=== PATIENT | male | born 1965 | race Caucasian/White ===

== ENCOUNTER 2021-06-18 13:21 | Inpatient (IN) ==
[2021-06-18] MEDS ORDERED: DILTIAZEM 100 MG VIAL.ADD IV ONE (13:48)
[2021-06-18] MEDS ORDERED: DILTIAZEM 50 MG/10 ML VIAL IV ONE ×2 (13:49→17:07)
[2021-06-18] MEDS ORDERED: ADENOSINE 6 MG/2 ML VIAL ONE (14:54)
[2021-06-18] MEDS ORDERED: AMIODARONE 150 MG/3 ML VIAL ONE (15:10)
[2021-06-18] MEDS ORDERED: AMIODARONE 450 MG/9 ML VIAL IV ONE (15:10)
[2021-06-18] MEDS ORDERED: AMIODARONE INJ 150 MG in DEXTROSE 5% 100 ML IV ONE (15:11)
[2021-06-18] MEDS ORDERED: ALBUTEROL 2.5 MG/3 ML NEB RESP TX PRN (15:12)
[2021-06-18] MEDS ORDERED: ONDANSETRON 4 MG/2 ML VIAL IV PRN (15:12)
[2021-06-18] MEDS ORDERED: ACETAMINOPHEN 325 MG TABLET PO PRN (15:12)
[2021-06-18] MEDS ORDERED: AZITHROMYCIN INJ 500 MG in SODIUM CHLORIDE 0.9% 250 ML IV ONE (15:12)
[2021-06-18] MEDS ORDERED: SODIUM CHLORIDE 0.9% 1,000 ML IV STA (15:20)
[2021-06-18] MEDS ORDERED: AMIODARONE INJ 450 MG in DEXTROSE 5% 241 ML IV SCH (15:30)
[2021-06-18] MEDS ORDERED: ENOXAPARIN 40 MG/0.4 ML SYRINGE SUBCUT SCH (15:30)
[2021-06-18] MEDS ORDERED: cefTRIAXone 1,000 MG in SODIUM CHLORIDE 0.9% 100 ML IV SCH (15:30)
[2021-06-18] MEDS ORDERED: MIDAZOLAM 10 MG/2 ML VIAL ONE (15:31)
[2021-06-18 15:43] LABS: ABG HCO3 20.2 MMOL/L (20-26); ABG PCO2 47.2 MM HG (35-48); ABG PH 7.296 (7.35-7.45); ABG TCO2 20.1 MMOL/L (23-27)
[2021-06-18 15:46] LABS: ABG PO2 36.4 MM HG (80-95)
[2021-06-18] MEDS ORDERED: DIGOXIN 0.5 MG/2 ML AMP IV ONE ×2 (16:15→17:00)
[2021-06-18] MEDS ORDERED: MIDAZOLAM 2 MG/2 ML VIAL IV ONE (16:30)
[2021-06-18] MEDS: MIDAZOLAM 100 MG in SODIUM CHLORIDE 0.9% 80 ML IV PRN (17:25)
[2021-06-18] MEDS: fentaNYL INJ 1,250 MCG in SODIUM CHLORIDE 0.9% 225 ML IV PRN ×2 (17:28→23:29)
[2021-06-18] MEDS ORDERED: DILTIAZEM INJ 100 MG in SODIUM CHLORIDE 0.9% 100 ML IV SCH (17:30)
[2021-06-18] MEDS: ROCURONIUM 500 MG in SODIUM CHLORIDE 0.9% 500 ML IV PRN (17:32)
[2021-06-18] MEDS: DEXAMETHASONE 4 MG/1 ML VIAL IV SCH (18:21)
[2021-06-18] MEDS: FAMOTIDINE 20 MG/2 ML VIAL IV SCH (18:21)
[2021-06-18 18:51] LABS: ABG Base Excess -6.4 MMOL/L (-2.5-2.5); ABG HCO3 18.9 MMOL/L (20-26); ABG Oxygen Saturation 79.8 % (95-100); ABG PO2 60.4 MM HG (80-95); ABG TCO2 22.5 MMOL/L (23-27)
[2021-06-18 18:52] LABS: Basophils % 0.2 % (0.0-0.8); Hematocrit 49.2 VOL% (42.0-52.0); Hemoglobin 15.5 GM/DL (14.0-18.0); Immature Granulocytes % 1.9 %; Immature Granulocytes Absolute 0.41 #; Lymphocytes # 1.3 10*3/uL (1.4-4.0); Lymphocytes % 6.1 % (21.2-54.2); Mean Corpuscular HGB Conc 31.5 GM/DL (32-36); Mean Platelet Volume 9.6 FL (9.6-12.0); Monocytes % 6.5 % (1.7-12.7); NRBC # 0.18 10*3/uL; Neutrophils % 85.3 % (38.7-73.9); Platelet Count 173 T/CUMM (130-400); Red Cell Distribution Width 12.9 % (9.3-17.3); White Blood Count 21.3 T/CUMM (4-12)
[2021-06-18 18:53] LABS: ABG PCO2 71.4 MM HG (35-48); ABG PH 7.158 (7.35-7.45)
[2021-06-18 19:09] LABS: Albumin 2.6 G/DL (3.4-5.0); Bilirubin,Total 1.4 MG/DL (0.20-1.00); Calcium 7.6 MG/DL (8.5-10.1); Osmolality,Calculated 292.1 MOS/KG (273-304); Potassium 5.3 MMOL/L (3.5-5.1); Total Protein 6.3 G/DL (6.4-8.2)
[2021-06-18 19:12] LABS: Lymphocytes 6 % (20-55); Segmented Neutrophils 92 % (50-85); Total Cells Counted 100
[2021-06-18 19:13] LABS: Anisocytosis 1+; Macrocytosis 1+; Platelet Estimate Adequate; Polychromasia 1+
[2021-06-18] MEDS ORDERED: SODIUM CHLORIDE 0.9% 1,000 ML IV ONE (19:20)
[2021-06-18] MEDS: NOREPINEPHRINE 8 MG in SODIUM CHLORIDE 0.9% 242 ML IV PRN (19:45)
[2021-06-18 20:34] LABS: ABG Base Excess -7.3 MMOL/L (-2.5-2.5); ABG HCO3 18.3 MMOL/L (20-26); ABG Oxygen Saturation 82.5 % (95-100); ABG PCO2 58.1 MM HG (35-48); ABG PO2 60.8 MM HG (80-95); ABG TCO2 19.8 MMOL/L (23-27)
[2021-06-18 20:37] LABS: ABG PH 7.195 (7.35-7.45)
[2021-06-18] MEDS: ENOXAPARIN 120 MG/0.8 ML SYRINGE SUBCUT SCH (22:25)
[2021-06-18] MEDS: ASCORBIC ACID 500 MG TABLET PO SCH (22:50)
[2021-06-18 23:24] LABS: ABG Base Excess -8.3 MMOL/L (-2.5-2.5); ABG HCO3 17.6 MMOL/L (20-26); ABG Oxygen Saturation 83.9 % (95-100); ABG PCO2 55.8 MM HG (35-48); ABG PO2 61.6 MM HG (80-95); ABG TCO2 18.7 MMOL/L (23-27)
[2021-06-18 23:25] LABS: ABG PH 7.191 (7.35-7.45)
[2021-06-19] MEDS: SODIUM CHLORIDE 0.9% 1,000 ML IV SCH (00:09)
[2021-06-19] MEDS: NOREPINEPHRINE 8 MG in SODIUM CHLORIDE 0.9% 242 ML IV PRN ×3 (02:10→18:57)
[2021-06-19 02:25] LABS: ABG Base Excess -8.8 MMOL/L (-2.5-2.5); ABG HCO3 17.3 MMOL/L (20-26); ABG Oxygen Saturation 85.3 % (95-100); ABG PCO2 53.7 MM HG (35-48); ABG PO2 62.1 MM HG (80-95); ABG TCO2 18.1 MMOL/L (23-27)
[2021-06-19 02:27] LABS: ABG PH 7.192 (7.35-7.45)
[2021-06-19] MEDS ORDERED: ACETAMINOPHEN 650 MG SUPP RECTAL PRN (03:01)
[2021-06-19 03:48] LABS: ABG Base Excess -8.6 MMOL/L (-2.5-2.5); ABG HCO3 17.4 MMOL/L (20-26); ABG Oxygen Saturation 86.8 % (95-100); ABG PCO2 53.8 MM HG (35-48); ABG PO2 64.5 MM HG (80-95); ABG TCO2 18.3 MMOL/L (23-27)
[2021-06-19 03:52] LABS: ABG PH 7.194 (7.35-7.45)
[2021-06-19 03:59] LABS: Basophils % 0.2 % (0.0-0.8); Hematocrit 49.4 VOL% (42.0-52.0); Hemoglobin 15.6 GM/DL (14.0-18.0); Immature Granulocytes % 1.7 %; Immature Granulocytes Absolute 0.37 #; Lymphocytes # 1.1 10*3/uL (1.4-4.0); Lymphocytes % 5.1 % (21.2-54.2); Mean Corpuscular HGB Conc 31.6 GM/DL (32-36); Mean Corpuscular Volume 109.1 FL (87-102); Monocytes % 6.2 % (1.7-12.7); NRBC # 0.15 10*3/uL; Neutrophils % 86.8 % (38.7-73.9); Platelet Count 149 T/CUMM (130-400); Red Blood Count 4.53 MC/CUMM (3.8-5.5); Red Cell Distribution Width 13.1 % (9.3-17.3); White Blood Count 21.3 T/CUMM (4-12)
[2021-06-19] MEDS ORDERED: SODIUM CHLORIDE 0.9% 1,000 ML IV ONE (04:32)
[2021-06-19 04:41] LABS: Albumin 2.5 G/DL (3.4-5.0); Bilirubin,Total 2.1 MG/DL (0.20-1.00); Calcium 7.9 MG/DL (8.5-10.1); Ferritin 1562.3 ng/ml (26-388); Osmolality,Calculated 284.8 MOS/KG (273-304); Total Protein 6.6 G/DL (6.4-8.2)
[2021-06-19 04:45] LABS: Potassium 6.1 MMOL/L (3.5-5.1)
[2021-06-19] MEDS ORDERED: SODIUM POLYSTYRENE SULFATE 15 GM/60 ML BOTTLE PO ONE (04:47)
[2021-06-19] MEDS: FAMOTIDINE 20 MG/2 ML VIAL IV SCH ×2 (05:24→15:35)
[2021-06-19] MEDS: ROCURONIUM 500 MG in SODIUM CHLORIDE 0.9% 500 ML IV PRN ×3 (05:27→22:40)
[2021-06-19] MEDS ORDERED: SODIUM BICARBONATE 50 MEQ/50 ML VIAL IV ONE ×2 (05:38→05:40)
[2021-06-19] MEDS: fentaNYL INJ 1,250 MCG in SODIUM CHLORIDE 0.9% 225 ML IV PRN ×3 (06:00→22:14)
[2021-06-19] MEDS: DEXAMETHASONE 4 MG/1 ML VIAL IV SCH (08:23)
[2021-06-19] MEDS: ENOXAPARIN 120 MG/0.8 ML SYRINGE SUBCUT SCH ×2 (08:24→21:40)
[2021-06-19] MEDS: ZINC GLUCONATE 50 MG TABLET PO SCH (08:24)
[2021-06-19] MEDS: CHOLECALCIFEROL 1,000 UNIT TABLET PO SCH (08:24)
[2021-06-19] MEDS: ASCORBIC ACID 500 MG TABLET PO SCH ×2 (08:24→21:50)
[2021-06-19] MEDS ORDERED: AZITHROMYCIN 250 MG TABLET PO SCH (09:00)
[2021-06-19] MEDS: methylPREDNISolone SOD SUC 40 MG/1 ML VIAL IV SCH ×2 (10:30→17:45)
[2021-06-19 10:52] LABS: Calcium 7.8 MG/DL (8.5-10.1); Potassium 5.7 MMOL/L (3.5-5.1)
[2021-06-19 10:55] LABS: ABG PCO2 47.7 MM HG (35-48); ABG PH 7.233 (7.35-7.45); ABG PO2 74.6 MM HG (80-95); ABG TCO2 17.6 MMOL/L (23-27)
[2021-06-19] MEDS ORDERED: ASPIRIN EC 81 MG TABLET PO SCH (11:00)
[2021-06-19] MEDS: CEFEPIME 1,000 MG in SODIUM CHLORIDE 0.9% 100 ML IV SCH ×2 (11:55→19:09)
[2021-06-19] MEDS: SODIUM POLYSTYRENE SULFATE 15 GM/60 ML BOTTLE PO SCH ×2 (11:55→21:45)
[2021-06-19] MEDS: SODIUM BICARB INJ 50 MEQ in STERILE WATER INJ 1,000 ML IV SCH (12:25)
[2021-06-19] MEDS: VANCOMYCIN INJ 1,500 MG in SODIUM CHLORIDE 0.9% 500 ML IV SCH (14:26)
[2021-06-20] MEDS: SODIUM CHLORIDE 0.9% 1,000 ML IV SCH ×2 (01:30→06:30)
[2021-06-20] MEDS: INSULIN REGULAR 100 UNIT/ML SUBCUT SCH ×5 (02:04→23:58)
[2021-06-20] MEDS ORDERED: DILTIAZEM 50 MG/10 ML VIAL IV ONE ×2 (02:58→11:45)
[2021-06-20] MEDS: methylPREDNISolone SOD SUC 40 MG/1 ML VIAL IV SCH ×3 (03:24→18:48)
[2021-06-20] MEDS: CEFEPIME 1,000 MG in SODIUM CHLORIDE 0.9% 100 ML IV SCH ×3 (03:25→18:48)
[2021-06-20] MEDS: FAMOTIDINE 20 MG/2 ML VIAL IV SCH ×2 (03:27→09:29)
[2021-06-20] MEDS ORDERED: DILTIAZEM INJ 100 MG in SODIUM CHLORIDE 0.9% 100 ML IV SCH (03:30)
[2021-06-20] MEDS: fentaNYL INJ 1,250 MCG in SODIUM CHLORIDE 0.9% 225 ML IV PRN (03:46)
[2021-06-20 04:03] LABS: ABG Base Excess -4.4 MMOL/L (-2.5-2.5); ABG HCO3 20.5 MMOL/L (20-26); ABG Oxygen Saturation 86.3 % (95-100); ABG PH 7.263 (7.35-7.45); ABG TCO2 20.6 MMOL/L (23-27)
[2021-06-20] MEDS ORDERED: AMIODARONE INJ 150 MG in DEXTROSE 5% 100 ML IV ONE (04:20)
[2021-06-20] MEDS ORDERED: DIGOXIN 0.5 MG/2 ML AMP ONE (04:20)
[2021-06-20] MEDS ORDERED: DIGOXIN 0.5 MG/2 ML AMP IV ONE ×2 (04:20→10:30)
[2021-06-20] MEDS ORDERED: AMIODARONE 150 MG/3 ML VIAL ONE (04:21)
[2021-06-20] MEDS: SODIUM POLYSTYRENE SULFATE 15 GM/60 ML BOTTLE PO SCH (04:48)
[2021-06-20 05:11] LABS: Basophils % 0.1 % (0.0-0.8); Hematocrit 44.8 VOL% (42.0-52.0); Hemoglobin 14.3 GM/DL (14.0-18.0); Immature Granulocytes % 1.1 %; Immature Granulocytes Absolute 0.17 #; Lymphocytes # 0.5 10*3/uL (1.4-4.0); Lymphocytes % 3.3 % (21.2-54.2); Mean Corpuscular HGB Conc 31.9 GM/DL (32-36); Mean Corpuscular Volume 105.9 FL (87-102); Mean Platelet Volume 11.4 FL (9.6-12.0); Monocytes % 6.4 % (1.7-12.7); NRBC # 0.03 10*3/uL; Neutrophils % 89.1 % (38.7-73.9); Red Blood Count 4.23 MC/CUMM (3.8-5.5); Red Cell Distribution Width 13.1 % (9.3-17.3); White Blood Count 15.3 T/CUMM (4-12)
[2021-06-20 05:12] LABS: Platelet Count 88 T/CUMM (130-400)
[2021-06-20 05:29] LABS: Band Neutrophils 1 % (0-10); Nucleated Red Blood Cells 1 (0-5); Platelet Estimate Decreased; Segmented Neutrophils 94 % (50-85); Total Cells Counted 100
[2021-06-20 05:30] LABS: Macrocytosis Slight
[2021-06-20 05:42] LABS: Bilirubin,Total 3.5 MG/DL (0.20-1.00); Osmolality,Calculated 307.6 MOS/KG (273-304); Potassium 4.8 MMOL/L (3.5-5.1); Total Protein 5.9 G/DL (6.4-8.2)
[2021-06-20 06:08] LABS: Calcium 7.8 MG/DL (8.5-10.1); Osmolality,Calculated 309.4 MOS/KG (273-304); Potassium 5.1 MMOL/L (3.5-5.1)
[2021-06-20 06:40] LABS: Ferritin 1700.5 ng/ml (26-388)
[2021-06-20] MEDS ORDERED: METOPROLOL TARTRATE 5 MG/5 ML VIAL IV ONE (06:51)
[2021-06-20] MEDS ORDERED: AMIODARONE INJ 450 MG in DEXTROSE 5% 241 ML IV SCH ×2 (07:00→13:00)
[2021-06-20] MEDS: ENOXAPARIN 120 MG/0.8 ML SYRINGE SUBCUT SCH ×2 (07:24→20:57)
[2021-06-20] MEDS: fentaNYL INJ 2,500 MCG in SODIUM CHLORIDE 0.9% 75 ML IV PRN ×5 (08:05→21:47)
[2021-06-20] MEDS: ROCURONIUM 1,000 MG in SODIUM CHLORIDE 0.9% 175 ML IV PRN ×2 (08:39→22:01)
[2021-06-20] MEDS: SODIUM BICARB INJ 50 MEQ in STERILE WATER INJ 1,000 ML IV SCH (08:46)
[2021-06-20] MEDS: MIDAZOLAM 100 MG in SODIUM CHLORIDE 0.9% 80 ML IV PRN ×2 (09:43→18:15)
[2021-06-20] MEDS: ASCORBIC ACID 500 MG TABLET PO SCH ×3 (09:59→21:22)
[2021-06-20] MEDS: ZINC GLUCONATE 50 MG TABLET PO SCH ×2 (09:59→10:00)
[2021-06-20] MEDS: ASPIRIN CHEW 81 MG TABLET PO SCH ×2 (09:59→10:00)
[2021-06-20] MEDS: CHOLECALCIFEROL 1,000 UNIT TABLET PO SCH ×2 (09:59→10:00)
[2021-06-20 11:26] LABS: CKMB % 2.7 %
[2021-06-20] MEDS: DILTIAZEM INJ 100 MG in SODIUM CHLORIDE 0.9% 100 ML IV SCH (12:01)
[2021-06-20 14:23] LABS: ABG Base Excess -6.4 MMOL/L (-2.5-2.5); ABG Oxygen Saturation 87.2 % (95-100); ABG PCO2 42.3 MM HG (35-48); ABG PH 7.287 (7.35-7.45); ABG PO2 56.2 MM HG (80-95); ABG TCO2 17.7 MMOL/L (23-27)
[2021-06-20] MEDS ORDERED: LACTATED RINGERS 1,000 ML IV ONE (14:40)
[2021-06-20] MEDS ORDERED: NOREPINEPHRINE 8 MG in SODIUM CHLORIDE 0.9% 242 ML IV PRN (14:55)
[2021-06-20] MEDS: SODIUM BICARB INJ 100 MEQ in STERILE WATER INJ 1,000 ML IV SCH (15:58)
[2021-06-20] MEDS: VANCOMYCIN INJ 1,500 MG in SODIUM CHLORIDE 0.9% 500 ML IV SCH (16:00)
[2021-06-20 16:02] LABS: Bilirubin,Urine Negative (Negative); Blood, Urine Moderate mg/dL (Negative); Glucose,Urine (UA) Negative (Negative); Ketones,Urine Negative (Negative); Nitrite,Urine Negative (Negative); Protein,Urine 30 MG/DL; RBC,Urine 25 /HPF (0-4); Squamous Epithelial Cell,Urine Occasional /HPF (0-10); Urine Appearance CLEAR (Clear); Urine Color Amber (Yellow); Urine Specific Gravity 1.018 (1.001-1.035)
[2021-06-20] MEDS ORDERED: NOREPINEPHRINE 4 MG/4 ML VIAL IV ONE (17:26)
[2021-06-21] MEDS: DILTIAZEM INJ 100 MG in SODIUM CHLORIDE 0.9% 100 ML IV SCH (00:53)
[2021-06-21] MEDS: fentaNYL INJ 5,000 MCG in SODIUM CHLORIDE 0.9% 150 ML IV PRN ×3 (00:57→22:57)
[2021-06-21] MEDS: methylPREDNISolone SOD SUC 40 MG/1 ML VIAL IV SCH ×3 (02:08→18:37)
[2021-06-21] MEDS: CEFEPIME 1,000 MG in SODIUM CHLORIDE 0.9% 100 ML IV SCH ×3 (02:08→21:04)
[2021-06-21] MEDS: SODIUM BICARB INJ 100 MEQ in STERILE WATER INJ 1,000 ML IV SCH ×2 (03:17→13:33)
[2021-06-21] MEDS: MIDAZOLAM 100 MG in SODIUM CHLORIDE 0.9% 80 ML IV PRN ×3 (03:19→20:31)
[2021-06-21] MEDS: INSULIN REGULAR 100 UNIT/ML SUBCUT SCH ×3 (06:29→18:01)
[2021-06-21 08:17] LABS: ABG Base Excess -8.7 MMOL/L (-2.5-2.5); ABG HCO3 19.7 MMOL/L (20-26); ABG Oxygen Saturation 87.3 % (95-100); ABG PCO2 51.5 MM HG (35-48); ABG TCO2 21.3 MMOL/L (23-27)
[2021-06-21 08:20] LABS: ABG PH 7.201 (7.35-7.45)
[2021-06-21 08:23] LABS: Basophils % 0.2 % (0.0-0.8); Hematocrit 48.8 VOL% (42.0-52.0); Hemoglobin 15.2 GM/DL (14.0-18.0); Immature Granulocytes % 2.4 %; Immature Granulocytes Absolute 0.46 #; Lymphocytes # 1.3 10*3/uL (1.4-4.0); Lymphocytes % 6.7 % (21.2-54.2); Mean Corpuscular HGB Conc 31.1 GM/DL (32-36); Mean Platelet Volume 11.9 FL (9.6-12.0); Monocytes % 4.5 % (1.7-12.7); Neutrophils % 86.2 % (38.7-73.9); Platelet Count 111 T/CUMM (130-400); Red Blood Count 4.56 MC/CUMM (3.8-5.5); Red Cell Distribution Width 13.3 % (9.3-17.3)
[2021-06-21 08:41] LABS: Band Neutrophils 4 % (0-10); Lymphocytes 7 % (20-55); Platelet Estimate Decreased; Segmented Neutrophils 88 % (50-85); Total Cells Counted 100
[2021-06-21 09:04] LABS: Albumin 1.7 G/DL (3.4-5.0); Bilirubin,Total 4.9 MG/DL (0.20-1.00); Calcium 8.2 MG/DL (8.5-10.1); Ferritin 2561.8 ng/mL (26-388); Osmolality,Calculated 306.3 MOS/KG (273-304); Potassium 5.3 MMOL/L (3.5-5.1); Total Protein 5.8 G/DL (6.4-8.2)
[2021-06-21] MEDS: ENOXAPARIN 120 MG/0.8 ML SYRINGE SUBCUT SCH (09:40)
[2021-06-21] MEDS: FAMOTIDINE 20 MG/2 ML VIAL IV SCH (09:42)
[2021-06-21] MEDS ORDERED: SODIUM BICARBONATE 50 MEQ/50 ML VIAL IV ONE ×4 (09:57→18:02)
[2021-06-21] MEDS ORDERED: HEPARIN DRIP 25,000 UNITS/500 ML PREMIX IV SCH ×2 (10:00→21:00)
[2021-06-21 10:13] LABS: Hepatitis B Surface Ag Quant 0.17 Index; Hepatitis B Surface Ag Result Non-Reactive (NonReactive); Hepatitis C Virus Ab Quant < 0.02 Index; Hepatitis C Virus Ab Result Non-Reactive (NonReactive)
[2021-06-21] MEDS: CHOLECALCIFEROL 1,000 UNIT TABLET PO SCH (10:17)
[2021-06-21] MEDS: ASCORBIC ACID 500 MG TABLET PO SCH ×2 (10:17→21:04)
[2021-06-21] MEDS: ASPIRIN CHEW 81 MG TABLET PO SCH (10:17)
[2021-06-21] MEDS: ZINC GLUCONATE 50 MG TABLET PO SCH (10:18)
[2021-06-21] MEDS ORDERED: CEFEPIME 1,000 MG in SODIUM CHLORIDE 0.9% 100 ML IV ONE (11:00)
[2021-06-21] MEDS: NOREPINEPHRINE 16 MG in SODIUM CHLORIDE 0.9% 234 ML IV PRN ×3 (11:29→22:59)
[2021-06-21] MEDS: ROCURONIUM 1,000 MG in SODIUM CHLORIDE 0.9% 175 ML IV PRN (11:59)
[2021-06-21 17:31] LABS: Calcium 7.9 MG/DL (8.5-10.1)
[2021-06-21 17:51] LABS: ABG Base Excess -8.7 MMOL/L (-2.5-2.5); ABG HCO3 20.5 MMOL/L (20-26); ABG Oxygen Saturation 85.3 % (95-100); ABG PCO2 56.9 MM HG (35-48); ABG PO2 62.3 MM HG (80-95); ABG TCO2 22.2 MMOL/L (23-27)
[2021-06-21 17:52] LABS: ABG PH 7.174 (7.35-7.45)
[2021-06-21 20:36] LABS: HIT Interpretation Negative (Negative)
[2021-06-22] MEDS: INSULIN REGULAR 100 UNIT/ML SUBCUT SCH ×4 (00:54→18:05)
[2021-06-22] MEDS: methylPREDNISolone SOD SUC 40 MG/1 ML VIAL IV SCH ×3 (01:00→18:54)
[2021-06-22] MEDS: SODIUM BICARB INJ 100 MEQ in STERILE WATER INJ 1,000 ML IV SCH ×2 (01:01→11:11)
[2021-06-22] MEDS: ROCURONIUM 1,000 MG in SODIUM CHLORIDE 0.9% 175 ML IV PRN ×2 (01:02→13:39)
[2021-06-22 03:59] LABS: ABG Base Excess -7.2 MMOL/L (-2.5-2.5); ABG HCO3 22.5 MMOL/L (20-26); ABG Oxygen Saturation 86.4 % (95-100); ABG PCO2 63.7 MM HG (35-48); ABG PO2 65.1 MM HG (80-95); ABG TCO2 24.4 MMOL/L (23-27)
[2021-06-22 04:00] LABS: ABG PH 7.165 (7.35-7.45)
[2021-06-22] MEDS: fentaNYL INJ 5,000 MCG in SODIUM CHLORIDE 0.9% 150 ML IV PRN ×4 (04:18→18:56)
[2021-06-22 04:32] LABS: Basophils # 0.1 10*3/uL (0.0-0.2); Basophils % 0.3 % (0.0-0.8); Hematocrit 42.9 VOL% (42.0-52.0); Hemoglobin 13.6 GM/DL (14.0-18.0); Immature Granulocytes % 3.5 %; Lymphocytes # 1.1 10*3/uL (1.4-4.0); Lymphocytes % 4.3 % (21.2-54.2); Mean Corpuscular HGB Conc 31.7 GM/DL (32-36); Mean Corpuscular Volume 106.7 FL (87-102); Mean Platelet Volume 14.1 FL (9.6-12.0); Monocytes % 3.2 % (1.7-12.7); NRBC # 0.26 10*3/uL; Neutrophils % 88.7 % (38.7-73.9); Red Blood Count 4.02 MC/CUMM (3.8-5.5); Red Cell Distribution Width 13.5 % (9.3-17.3)
[2021-06-22] MEDS: CEFEPIME 1,000 MG in SODIUM CHLORIDE 0.9% 100 ML IV SCH (04:36)
[2021-06-22] MEDS: MIDAZOLAM 100 MG in SODIUM CHLORIDE 0.9% 80 ML IV PRN ×2 (04:38→18:06)
[2021-06-22] MEDS: NOREPINEPHRINE 16 MG in SODIUM CHLORIDE 0.9% 234 ML IV PRN ×5 (04:39→16:56)
[2021-06-22 04:44] LABS: Platelet Count 61 T/CUMM (130-400)
[2021-06-22 04:45] LABS: INR 1.4; PT Patient Result 15.3 SECS (10.5-12.0)
[2021-06-22 04:58] LABS: Band Neutrophils 12 % (0-10); Lymphocytes 2 % (20-55); Nucleated Red Blood Cells 2 (0-5); Platelet Estimate Decreased; Segmented Neutrophils 81 % (50-85); Total Cells Counted 100
[2021-06-22 05:01] LABS: Ferritin 2207.8 ng/mL (26-388)
[2021-06-22 05:11] LABS: Albumin 1.3 G/DL (3.4-5.0); Bilirubin,Total 4.1 MG/DL (0.20-1.00); Calcium 7.5 MG/DL (8.5-10.1); Total Protein 5.5 G/DL (6.4-8.2)
[2021-06-22 05:13] LABS: Potassium 6.1 MMOL/L (3.5-5.1)
[2021-06-22 07:51] VITALS: BP 71/54
[2021-06-22] MEDS: SODIUM CHLORIDE 0.9% 1,000 ML IV SCH (08:02)
[2021-06-22] MEDS ORDERED: SODIUM BICARBONATE 50 MEQ/50 ML VIAL IV ONE ×2 (08:22→08:43)
[2021-06-22] MEDS ORDERED: PHENYLEPHRINE DRIP 40 MG/250 ML PREMIX IV ONE (08:23)
[2021-06-22] MEDS: PHENYLEPHRINE DRIP 40 MG/250 ML PREMIX IV PRN ×4 (09:05→17:40)
[2021-06-22] MEDS ORDERED: HEPARIN 10,000 UNIT/10 ML VIAL IV PRN (09:09)
[2021-06-22] MEDS: ASCORBIC ACID 500 MG TABLET PO SCH (09:28)
[2021-06-22] MEDS: FAMOTIDINE 20 MG/2 ML VIAL IV SCH (09:28)
[2021-06-22] MEDS: CHOLECALCIFEROL 1,000 UNIT TABLET PO SCH (09:29)
[2021-06-22] MEDS: ZINC GLUCONATE 50 MG TABLET PO SCH (09:29)
[2021-06-22] MEDS ORDERED: VANCOMYCIN INJ 750 MG in SODIUM CHLORIDE 0.9% 250 ML IV PRN (09:31)
[2021-06-22 11:30] LABS: Hepatitis B Core IgM Quant 0.11 Index; Hepatitis B Surface Ag Quant < 0.10 Index; Hepatitis B Surface Ag Result Non-Reactive (NonReactive); Hepatitis C Virus Ab Quant < 0.02 Index; Hepatitis C Virus Ab Result Non-Reactive (NonReactive)
[2021-06-22] MEDS ORDERED: VANCOMYCIN INJ 750 MG in SODIUM CHLORIDE 0.9% 250 ML IV ONE (12:00)
[2021-06-22] MEDS ORDERED: MINERAL OIL/PETROLATUM OPH OINT 3.5 GM TUBE BOTH EYES SCH (12:00)
[2021-06-22 14:36] LABS: INR 1.3; PT Patient Result 14.3 SECS (10.5-12.0)
[2021-06-22 14:45] LABS: Partial Thromboplastin Time 81.7 SECS (23.9-33.8)
[2021-06-22] MEDS ORDERED: PHENYLEPHRINE INJ 160 MG in SODIUM CHLORIDE 0.9% 234 ML IV PRN (18:22)
[2021-06-23] MEDS ORDERED: CEFEPIME 1,000 MG in SODIUM CHLORIDE 0.9% 100 ML IV SCH (06:00)
== END 2021-06-22 20:14 | disposition expired | DRG 207 ==
LOC: EDBD → EDUNIT# → N.ED 13:21 → N.ICU 13:52 → SUATTDRO 15:12 → N.EDINP 15:12 → N.ICU 16:07
PROVIDERS: ADMIT Internal Medicine; ATTEND Family Medicine